=== PATIENT | female | born 1940 | race Caucasian/White ===

== ENCOUNTER 2017-02-18 16:26 | Emergency (ER) | payer MEDICARE, BC ==
[2017-02-18] MEDS ORDERED: LIDOCAINE 1%/EPINEPHRINE 20ML VIAL IJ ONE (16:33)
--- NOTE | 2017-02-18 16:57 | ED Physician Documentation ---
General Adult - HISTORIAN Historian: patient - HPI Stated Complaint: fell--multiple facial lacerations Chief Complaint: General Adult Onset: minutes Timing: still present Severity: moderate Further Comments: yes (Pt is a 77 yo female with hx Parkinson's dz, who tripped and fell at the [employer], and hit her face on the door she fell into. Pt has several superficial lacerations to her forehead and nasal bridge. Tetanus is utd. Pt has a headache. Intensity is 5/10. No n/v. No acute focal deficits.) - ROS CONST: no problems EYES/ENT: none CVS/RESP: none GI/: none MS/SKIN/LYMPH: other (superficial facial lacerations) NEURO/PSYCH: headache (moderate) - PAST HX Past History: other (Parkinson's dz.) Surgeries/Procedures: hysterectomy, other (appendectomy, ortho surg.) Allergies/Adverse Reactions: Allergies Allergy/AdvReac Type Severity Reaction Status Date / Time clindamycin Allergy Verified 02/18/17 16:38 Sulfa (Sulfonamide Allergy Verified 02/18/17 16:38 Antibiotics) - SOCIAL HX Smoking History: non-smoker - FAMILY HX Family History: No - VITAL SIGNS Vital Signs: Vital Signs Temp Pulse Resp BP Pulse Ox 63 16 107/56 99 02/18/17 16:30 02/18/17 16:30 02/18/17 16:30 02/18/17 16:30 - REVIEWED ASSESSMENTS Nursing Assessment Reviewed: Yes Vitals Reviewed: Yes Procedures Wound Location: head, other (#1: 5 cm superficial laceration L forehead; #2: 2.5 cm v-shaped flap laceration, bridge of nose.) Wound Length: see above Wound's Depth, Shape: superficial Wound Explored: clean Betadine Prep?: Yes Anesthesia: Lidocaine w/ Epi Wound Debrided: minimal Wound Repaired With: sutures Suture Size/Type: 5:0, nylon Number of Sutures: 6 Progress - Progress Progress: CT brain w/o contrast: Brain atrophy without intracranial hemorrhage or skull fracture. Tylenol 650 mg po x 1 Topical abx Rx Keflex 500 mg po bid x 5 days, first dose in ER. #4 sutures to forehead laceration, 5-0 nylon; #2 sutures to nose laceration, 5- 0 nylon. small 1.5 cm laceration L forehead, close with tissue adhesive. Suture removal in 5 to 7 days. ED Results Lab/Radiology - Orders Orders: ED Orders Category Date Time Status CT BRAIN W/O CONTRAST Stat Exams 02/18/17 Ordered Lidocaine 1%/Epinephrine [Xylocaine 1%-EPI 1:100,000] Med 02/18/17 16:33 Discontinued 1 ml IJ NOW ONE General Adult Physical Exam - PHYSICAL EXAM GENERAL APPEARANCE: mild distress EENT: eye inspection normal, ENT inspection normal, pharynx normal NECK: normal inspection, supple RESPIRATORY: no resp distress, chest non-tender, breath sounds normal CVS: reg rate & rhythm, heart sounds normal ABDOMEN: soft, no organomegaly, normal bowel sounds BACK: normal inspection SKIN: other (5 cm superficial L forehead laceration; 2.5 cm V-shaped flap laceration, bridge of nose; 1 cm superficial laceration L forehead.) EXTREMITIES: other (R hand hematoma; FROM) NEURO: oriented X3, motor nml (baseline (Parkinson's)), sensation nml Discharge Clincal Impression: head trauma, facial lacerations, R hand hematoma Referrals: Primary Doctor,No [Primary Care Provider] - Condition: Stable Disposition: 01 HOME, SELF-CARE Decision to Admit: NO Decision Time: 17:49
[2017-02-18] MEDS ORDERED: ACETAMINOPHEN 325 MG TABLET ONE (17:00)
[2017-02-18] MEDS ORDERED: ACETAMINOPHEN 325 MG TABLET PO ONE (17:04)
[2017-02-18] MEDS ORDERED: CEPHALEXIN 250 MG CAPSULE PO ONE (17:30)
[2017-02-18 18:36] VITALS: BP 116/72
--- NOTE | 2017-02-18 18:59 | Diagnostic Imaging Report ---
HAN SALDIVAR [facility] [address] [facility] [address] [place] [address]. [id number] Report Submission Date: Feb 18, 2017 5:03:56 PM CDT Patient Study Name: ALYSON KAISER Date: Feb 18, 2017 4:45:28 PM CDT Modality Type: CT\SR Gender: F Description: CT BRAIN W/O CONTRAST : 40 Institution: [facility] Physician: HAN SALDIVAR Computed tomography of the head without contrast HISTORY: Headache and laceration after fall FINDINGS: Transverse brain sections are obtained without contrast revealing age- appropriate brain atrophy without intracranial hemorrhage or skull fracture. Wiggins-white differentiation is intact. Visualized sinuses and mastoid air cells are clear. IMPRESSION: Brain atrophy without intracranial hemorrhage or skull fracture. Electronically signed on Feb 18, 2017 5:03:56 PM CDT by: Tone ROSE
== END 2017-02-18 17:30 | disposition home or self-care (01) ==
LOC: ED 16:26
DX: S01.81XA Laceration without foreign body of other part of head, initial encounter (principal); W19.XXXA Unspecified fall, initial encounter; Y93.9 Activity, unspecified; Y99.9 Unspecified external cause status
CPT/HCPCS: 12013; 70450; 99284